=== PATIENT | female | born 1990 | race Caucasian/White ===

== ENCOUNTER → 2019-05-06 | Outpatient (CLI) | payer OTHER ==
[2019-05-06 15:03] LABS: EOS # 0.1 (0.04-0.40); EOS % 1.1 % (1.0-5.0); HEMATOCRIT 42.8 % (37.0-47.0); HEMOGLOBIN 14.1 g/dL (12.5-16.0); LYMPH# 1.9 (1.50-4.00); MEAN CELL VOLUME 93 fl (78-100); MEAN CORPUSCULAR HEMOGLOBIN 31 pg (27-31); MEAN CORPUSCULAR HGB CONC 33 g/dL (33-37); MONO # 0.5 (0.20-0.80); NEU # 2.7 (1.40-6.50); PLATELET COUNT 285 K/mm3 (130-400); RED BLOOD COUNT 4.59 M/mm3 (4.10-5.30); RED CELL DISTRIBUTION WIDTH 13.2 % (11.5-14.5); WHITE BLOOD COUNT 5.2 K/mm3 (4.8-10.8)
[2019-05-06 15:10] LABS: ALBUMIN 4.7 g/dL (3.5-5.0)
[2019-05-06 15:11] LABS: POTASSIUM 4.1 mmol/L (3.5-5.1)
[2019-05-06 15:12] LABS: CALCIUM 9.5 mg/dL (8.3-10.5)
[2019-05-06 15:13] LABS: TOTAL PROTEIN 8.5 g/dL (6.4-8.3)
[2019-05-06 15:15] LABS: TOTAL BILIRUBIN 0.4 mg/dL (0.2-1.2)
== END ==
LOC: LAB 14:46 → EDBD 14:46
PROVIDERS: Physician Assistant
DX: Z76.89 Persons encountering health services in other specified circumstances (principal); K59.00 Constipation, unspecified; R53.83 Other fatigue; E55.9 Vitamin D deficiency, unspecified; Z86.39 Personal history of other endocrine, nutritional and metabolic disease

== ENCOUNTER → 2019-09-28 | Outpatient (CLI) | payer OTHER ==
[2019-09-28 17:27] LABS: CLUE CELLS PRESENT (Not Observd)
== END ==
LOC: LAB 15:59
PROVIDERS: Nurse Practitioner
DX: N89.8 Other specified noninflammatory disorders of vagina (principal)
CPT/HCPCS: Q0111